=== PATIENT | male | born 1980 | race Caucasian/White ===

== ENCOUNTER 2017-08-07 16:57 | Inpatient (IN) ==
[2017-08-07 17:45] LABS: Bilirubin,Urine Small (Negative); Blood,Urine Negative (Negative); Clarity,Urine Clear (Clear); Glucose,Urine (UA) Normal (Normal); Ketones,Urine Trace mg/dL (Negative); Leukocyte Esterase,Urine Negative (Negative); Nitrite,Urine Negative (Negative); Protein,Urine 30 mg/dL (Neg-Trace); Specific Gravity,Urine >= 1.030 (1.010-1.025); Urobilinogen,Urine Normal (Normal)
[2017-08-07 17:50] LABS: Color,Urine Dark Yellow (Yellow)
[2017-08-07 17:55] LABS: Basophils # 0.1 K/mcL (0.0-0.2); Basophils % 0.4 %; Eosinophils # 0.1 K/mcL (0.0-0.6); Eosinophils % 0.6 %; Hematocrit 47.9 % (37.5-50.1); Hemoglobin 16.8 g/dL (12.9-16.9); Immature Granulocytes % 0.4 % (0-4); Lymphocytes # 1.6 K/mcL (0.6-4.6); Lymphocytes % 11.3 %; Mean Corpuscular HGB Conc 35.1 g/dL (31.6-35.5); Mean Corpuscular Hemoglobin 29.3 pg (28.0-33.3); Mean Corpuscular Volume 83.6 fL (83.0-100.0); Mean Platelet Volume 9.5 fL (9.4-12.4); Monocytes # 0.9 K/mcL (0.0-1.3); Monocytes % 6.2 %; Neutrophils # 11.4 K/mcL (1.6-8.9); Platelet Count 272 K/mcL (140-400); Red Blood Count 5.73 M/mcL (4.19-5.50); Red Cell Distribution Width 12.9 % (11.5-14.5); Segmented Neutrophils % 81.1 %
[2017-08-07 18:00] LABS: Mucus,Urine Few (Few)
[2017-08-07 18:01] LABS: Squamous Epithelial Cell,Urine Many per lpf (None-Few)
[2017-08-07 18:03] LABS: Bacteria,Urine None Seen per hpf (None-Few); RBC,Urine 0-3 per hpf (0-3); WBC,Urine 0-3 per hpf (0-3)
[2017-08-07] MEDS ORDERED: 0.9 % Sodium Chloride 1,000 ML IVC ONE (18:13)
[2017-08-07] MEDS ORDERED: Hyoscyamine 0.5 MG/ML MLS IVP ONE (18:14)
[2017-08-07] MEDS ORDERED: *HR* HYDROmorphone (PF) 1 MG/ML SYRINGE IVP ONE (18:14)
[2017-08-07 18:16] LABS: Alanine Aminotransferase 70 Units/L (7-52); Albumin/Globulin Ratio 2.1 (1.1-2.2); Alkaline Phosphatase 99 Units/L (34-104); Aspartate Amino Transferase 60 Units/L (13-39); BUN/Creatinine Ratio 12 (6-26); Bilirubin,Direct 0.7 mg/dL (0.0-0.2); Bilirubin,Indirect 2.5 mg/dL (0.0-1.2); Bilirubin,Total 3.2 mg/dL (0.3-1.0); Blood Urea Nitrogen 11 mg/dL (6-20); Calcium 9.7 mg/dL (8.6-10.3); Carbon Dioxide 26 mEq/L (23-29); Chloride 101 mEq/L (98-107); Globulin 2.4 g/dL (2.4-3.5); Glucose 119 mg/dL (70-105); Osmolality,Calculated 279 (280-300); Potassium 3.9 mEq/L (3.5-5.1); Sodium 134 mEq/L (136-145); Total Protein 7.4 g/dL (6.4-8.9); eGFR For African Americans > 60 (> 60); eGFR For Non-African Americans > 60 (> 60)
--- NOTE | 2017-08-07 18:19 | Emergency Department Note ---
Disposition Clinical Impression: Abdominal pain Qualifiers: Abdominal location: right upper quadrant Qualified Code(s): R10.11 - Right upper quadrant pain Disposition: Still a Patient Condition: Fair Forms: ED Satisfaction Letter, Work/School Release Abdominal Pain HPI - General Chief Complaint: ED Abdominal Pain Stated Complaint: Gall Stone issues Time Seen by Provider: 08/07/17 17:38 Source: patient Mode of arrival: ambulatory Limitations: no limitations Nursing Notes Reviewed: Yes Vital Signs Reviewed: Yes - History of Present Illness HPI Narrative: 37-year-old male with a history of gallstones in the past visits for evaluation of epigastric pain. He should not states onset of pain was earlier today. States he has had known gallstones several years ago. Patient has not had any interventions done. 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 Patient reports some nausea but no symptoms of emesis. No fevers. Patient notes that the pain is worse in the epigastrium. Patient denies any history of cardiac disease. Patient denies any change in bowels. Patient reports that he has not eaten today since 11:30 Pain Scale: 8 - Related Data Allergies Allergy/AdvReac Type Severity Reaction Status Date / Time No Known Allergies Allergy Verified 08/07/17 17:21 All systems ED: reviewed and negative except as stated. Constitutional: Reports: as per HPI. Denies: fever Eyes: Reports: as per HPI ENT ED: Reports: as per HPI Cardiovascular: Reports: as per HPI. Denies: chest pain Respiratory: Reports: as per HPI. Denies: dyspnea Gastrointestinal: Reports: as per HPI, abdominal pain, nausea. Denies: vomiting , diarrhea, constipation Genitourinary: Reports: as per HPI Musculoskeletal: Reports: as per HPI Integumentary: Reports: as per HPI Neurological: Reports: as per HPI Psychiatric: Reports: as per HPI Endocrine: Reports: as per HPI Abdominal Pain PMH - Past Medical History Medical history: Reports: other Male Surgical History: Reports: no surgical history Psychiatric history: Reports: no psych history - Social History Smoking status: Never smoker Alcohol use: Reports: none Drug use: Reports: none Physical Exam - General Limitations: no limitations General appearance: alert, in no apparent distress - Head Head exam: atraumatic, normocephalic, normal inspection - Eye Eye exam: Present: normal appearance, PERRL, EOMI - ENT ENT exam: normal exam, mucous membranes moist - Neck Neck exam: Present: normal inspection, trachea midline - Chest Chest inspection: Present: normal inspection, symmetric chest wall rise - Respiratory Respiratory exam: Present: normal lung sounds bilaterally. Absent: respiratory distress - Cardiovascular Cardiovascular exam: Present: regular rate, normal rhythm - Abdominal Exam Abdominal exam: Present: soft, tenderness (Mild to moderate tenderness right upper quadrant tenderness.). Absent: guarding, rebound - Extremities Exam Extremities exam: Present: normal inspection. Absent: pedal edema - Back Exam Back exam: Present: normal inspection - Neurological Exam Neurological exam: Present: alert, oriented X3 - Skin Skin exam: Present: warm, dry, intact, normal color Course Course Narrative: Patient seen and examined. Patient had a bedside ultrasound showed multiple gallstones with a distended gallbladder. There is no notable pericholecystic fluid. Patient will need a formal ultrasound to confirm. Vital Signs Temperature 97.5 F L 08/07/17 17:01 Pulse Rate 83 08/07/17 17:01 Respiratory Rate 16 08/07/17 17:01 Blood Pressure 148/93 08/07/17 17:01 O2 Sat by Pulse Oximetry 97 08/07/17 17:01 Temperature 97.5 F L 08/07/17 17:01 Pulse Rate 83 08/07/17 17:01 Respiratory Rate 16 08/07/17 17:01 Blood Pressure 148/93 08/07/17 17:01 O2 Sat by Pulse Oximetry 97 08/07/17 17:01 Oxygen Delivery Oxygen Delivery Room Air Abdominal Pain - [facility] Narrative Medical decision making narrative: 37-year-old male patient for evaluation of abdominal pain. Patient has known gallstones. Patient has right upper quadrant pain. Patient had a bedside ultrasound performed by me which showed gallstones with a distended gallbladder. Patient would likely need a formal ultrasound to rule out cholecystitis. Patient does have an elevated white count and elevated bilirubin and elevated liver function. Patient will be treated symptomatically with IV fluids, antiemetics and pain control. Patient will be sent up by the oncoming provider for anticipated disposition. Patient has been nothing by mouth since approximately 11:30 today. - Lab Data Lab results reviewed: Yes I reviewed the patient's lab results. Result diagrams: 08/07/17 17:45 08/07/17 17:45 Lab Results 12/08/07/17 08/07/17 Range/Units 17:11 17:45 17:45 WBC 14.1 H (4.3-11.1) K/mcL RBC 5.73 H (4.19-5.50) M/mcL Hgb 16.8 (12.9-16.9) g/dL Hct 47.9 (37.5-50.1) % MCV 83.6 (83.0-100.0) fL MCH 29.3 (28.0-33.3) pg MCHC 35.1 (31.6-35.5) g/dL RDW 12.9 (11.5-14.5) % Plt Count 272 (140-400) K/mcL MPV 9.5 (9.4-12.4) fL Immature Gran % 0.4 (0-4) % Seg Neutrophils % 81.1 % Lymphocytes % 11.3 % Monocytes % 6.2 % Eosinophils % 0.6 % Basophils % 0.4 % Neutrophils # 11.4 H (1.6-8.9) K/mcL Lymphocytes # 1.6 (0.6-4.6) K/mcL Monocytes # 0.9 (0.0-1.3) K/mcL Eosinophils # 0.1 (0.0-0.6) K/mcL Basophils # 0.1 (0.0-0.2) K/mcL Sodium 134 L (136-145) mEq/L Potassium 3.9 (3.5-5.1) mEq/L Chloride 101 (98-107) mEq/L Carbon Dioxide 26 (23-29) mEq/L BUN 11 (6-20) mg/dL Creatinine 0.92 (0.70-1.30) mg/dL Est GFR ( Amer) > 60 (> 60) Est GFR (Non-Af Amer) > 60 (> 60) BUN/Creatinine Ratio 12 (6-26) Glucose 119 H (70-105) mg/dL Calculated Osmolality 279 L (280-300) Calcium 9.7 (8.6-10.3) mg/dL Total Bilirubin 3.2 H (0.3-1.0) mg/dL Direct Bilirubin 0.7 H (0.0-0.2) mg/dL Indirect Bilirubin 2.5 H (0.0-1.2) mg/dL AST 60 H (13-39) Units/L ALT 70 H (7-52) Units/L Alkaline Phosphatase 99 (34-104) Units/L Serum Total Protein 7.4 (6.4-8.9) g/dL Albumin 5.0 (3.5-5.7) g/dL Globulin 2.4 (2.4-3.5) g/dL Albumin/Globulin Ratio 2.1 (1.1-2.2) Urine Color Dark Yellow (Yellow) Urine Clarity Clear (Clear) Urine pH 5.0 (5.0-8.0) pH Units Ur Specific [place] >= 1.030 H (1.010-1.025) Urine Protein 30 H (Neg-Trace) mg/dL Urine Glucose (UA) Normal (Normal) mg/dL Urine Ketones Trace H (Negative) mg/dL Urine Blood Negative (Negative) Urine Nitrite Negative (Negative) Urine Bilirubin Small H (Negative) Urine Urobilinogen Normal (Normal) mg/dL Ur Leukocyte Esterase Negative (Negative) Urine Microscopic RBC 0-3 (0-3) per hpf Urine Microscopic WBC 0-3 (0-3) per hpf Ur Squamous Epith Cells Many H (None-Few) per lpf Urine Bacteria None Seen (None-Few) per hpf Urine Mucus Few (Few) Ur Culture Indicated? NO (NO) Attestation Statement - Attestation Attestation: I examined this patient and my medical decision-making was reviewed with the Resident Physician. I agree with the documented findings, disposition and treatment plan as described except to the extent set forth below. Patient presents to the emergency department right upper quadrant abdominal pain. There upon awakening this morning. No vomiting. Patient states he was told 5 years ago that he had gallstones. On examination he has right upper quadrant tenderness. Plan. Labs showed elevated LFTs and bilirubin. White blood cell count. Bedside ultrasound shows a dilated gallbladder with stones. Formal ultrasound pending. Will be signed out to overnight associate.
[2017-08-07] MEDS ORDERED: Ondansetron 4 MG/2 ML VIAL IVP ONE (18:50)
[2017-08-07 19:25] LABS: Lipase > 1800 Units/L (11-82)
[2017-08-07] MEDS ORDERED: Piperacillin/Tazobactam 3.375 GM in Water for inj. (sterile) 20 ML 20 ML IVP STA (20:36)
--- NOTE | 2017-08-07 20:37 | Emergency Department Note ---
Disposition Clinical Impression: Choledocholithiasis, Elevated bilirubin Abdominal pain Qualifiers: Abdominal location: right upper quadrant Qualified Code(s): R10.11 - Right upper quadrant pain Disposition: Admitted As Inpatient Condition: Good Referrals: NONE,PCP [Primary Care Provider] - Forms: ED Satisfaction Letter, Work/School Release Time of Disposition: 20:38 General Adult HPI - General Chief complaint: ED Abdominal Pain Stated complaint: Gall Stone issues Time Seen by Provider: 08/07/17 17:38 Source: patient Mode of arrival: ambulatory Limitations: no limitations - History of Present Illness Pain Scale: 8 - Related Data Home Medications Medication Instructions Recorded Confirmed No Known Home Drugs 08/07/17 08/07/17 Allergies Allergy/AdvReac Type Severity Reaction Status Date / Time No Known Allergies Allergy Verified 08/07/17 17:21 Constitutional: Reports: as per HPI. Denies: fever Eyes: Reports: as per HPI ENT ED: Reports: as per HPI Cardiovascular: Reports: as per HPI. Denies: chest pain Respiratory: Reports: as per HPI. Denies: dyspnea Gastrointestinal: Reports: as per HPI, abdominal pain, nausea. Denies: vomiting , diarrhea, constipation Genitourinary: Reports: as per HPI Musculoskeletal: Reports: as per HPI Integumentary: Reports: as per HPI Neurological: Reports: as per HPI Psychiatric: Reports: as per HPI Endocrine: Reports: as per HPI Past Medical History - Past Medical History Medical history: Reports: other Psychiatric history: Reports: no psych history - Social History Smoking Status: Never smoker Alcohol use: Reports: none Drug use: Reports: none Physical Exam - General Limitations: no limitations General appearance: alert, in no apparent distress Course Course Narrative: Patient taken over at the beginning of my shift from Dr. Pino. Detailed review the presentation symptoms medical history as well as a medical evaluation and workup were discussed. Patient I discussed and reviewed the presentation repeat physical exam is consistent right upper quadrant discomfort. Labs do show what appears to be an obstructive pathology. Patient does have a history of gallbladder stones. Ultrasound of the right upper quadrant does show what appears to be dilation of the common bile duct consistent with choledocholithiasis. Patient discussed with the hospitalist Dr. Aguilar. Happy to accept the patient to the hospital this time for possible medical intervention with gastroenterology. Patient denies any need for pain medication this point. No antibiotics required at this time. Patient does not focally of any intra-abdominal pathology except for obstructed gallbladder this time. Patient family informed to come to this plan. Admission process to be completed this time. - Reevaluation(s) Reevaluation #1: After I reviewed the patient's laboratory work repeated in a slightly elevated white count. With neutrophilia. Patient could have presentation of early inflammatory or infectious etiology. Single dose of Zosyn started this time. No other acute concerning findings on exam at this point. Symptoms are most likely consistent and secondary to inflammation and irritation will continue monitoring the inpatient setting Time: 20:37 Vital Signs Temperature 97.5 F L 08/07/17 17:01 Pulse Rate 83 08/07/17 17:01 Respiratory Rate 16 08/07/17 17:01 Blood Pressure 148/93 08/07/17 17:01 O2 Sat by Pulse Oximetry 97 08/07/17 17:01 Temperature 97.5 F L 08/07/17 17:01 Pulse Rate 72 08/07/17 20:20 Respiratory Rate 18 08/07/17 20:20 Blood Pressure 137/91 08/07/17 20:20 O2 Sat by Pulse Oximetry 92 08/07/17 20:20 Oxygen Delivery Oxygen Delivery Room Air Medical Decision Making - MDM Narrative Medical decision making narrative: Choledocholithiasis, obstructive gallbladder - Medical Records Medical records reviewed: Yes I reviewed the patient's medical records. - Lab Data Lab results reviewed: Yes I reviewed the patient's lab results. Result diagrams: 08/07/17 17:45 08/07/17 17:45 Lab Results 08/07/17 08/07/17 08/07/17 Range/Units 17:11 17:45 17:45 WBC 14.1 H (4.3-11.1) K/mcL RBC 5.73 H (4.19-5.50) M/mcL Hgb 16.8 (12.9-16.9) g/dL Hct 47.9 (37.5-50.1) % MCV 83.6 (83.0-100.0) fL MCH 29.3 (28.0-33.3) pg MCHC 35.1 (31.6-35.5) g/dL RDW 12.9 (11.5-14.5) % Plt Count 272 (140-400) K/mcL MPV 9.5 (9.4-12.4) fL Immature Gran % 0.4 (0-4) % Seg Neutrophils % 81.1 % Lymphocytes % 11.3 % Monocytes % 6.2 % Eosinophils % 0.6 % Basophils % 0.4 % Neutrophils # 11.4 H (1.6-8.9) K/mcL Lymphocytes # 1.6 (0.6-4.6) K/mcL Monocytes # 0.9 (0.0-1.3) K/mcL Eosinophils # 0.1 (0.0-0.6) K/mcL Basophils # 0.1 (0.0-0.2) K/mcL Sodium 134 L (136-145) mEq/L Potassium 3.9 (3.5-5.1) mEq/L Chloride 101 (98-107) mEq/L Carbon Dioxide 26 (23-29) mEq/L BUN 11 (6-20) mg/dL Creatinine 0.92 (0.70-1.30) mg/dL Est GFR ( Amer) > 60 (> 60) Est GFR (Non-Af Amer) > 60 (> 60) BUN/Creatinine Ratio 12 (6-26) Glucose 119 H (70-105) mg/dL Calculated Osmolality 279 L (280-300) Calcium 9.7 (8.6-10.3) mg/dL Total Bilirubin 3.2 H (0.3-1.0) mg/dL Direct Bilirubin 0.7 H (0.0-0.2) mg/dL Indirect Bilirubin 2.5 H (0.0-1.2) mg/dL AST 60 H (13-39) Units/L ALT 70 H (7-52) Units/L Alkaline Phosphatase 99 (34-104) Units/L Serum Total Protein 7.4 (6.4-8.9) g/dL Albumin 5.0 (3.5-5.7) g/dL Globulin 2.4 (2.4-3.5) g/dL Albumin/Globulin Ratio 2.1 (1.1-2.2) Lipase > 1800 H (11-82) Units/L Urine Color Dark Yellow (Yellow) Urine Clarity Clear (Clear) Urine pH 5.0 (5.0-8.0) pH Units Ur Specific [place] >= 1.030 H (1.010-1.025) Urine Protein 30 H (Neg-Trace) mg/dL Urine Glucose (UA) Normal (Normal) mg/dL Urine Ketones Trace H (Negative) mg/dL Urine Blood Negative (Negative) Urine Nitrite Negative (Negative) Urine Bilirubin Small H (Negative) Urine Urobilinogen Normal (Normal) mg/dL Ur Leukocyte Esterase Negative (Negative) Urine Microscopic RBC 0-3 (0-3) per hpf Urine Microscopic WBC 0-3 (0-3) per hpf Ur Squamous Epith Cells Many H (None-Few) per lpf Urine Bacteria None Seen (None-Few) per hpf Urine Mucus Few (Few) Ur Culture Indicated? NO (NO) - Radiology Data Radiology results reviewed: Yes I reviewed the patient's radiology results. Ultrasound confirms obstructive choledocholithiasis.
[2017-08-07] MEDS ORDERED: Naloxone 0.4 MG/ML INJ IVP PRN (21:00)
[2017-08-07] MEDS ORDERED: Ondansetron 4 MG/2 ML VIAL IVP PRN (21:00)
[2017-08-07] MEDS ORDERED: 0.9 % Sodium Chloride 1,000 ML IVC SCH (21:00)
[2017-08-07] MEDS ORDERED: Acetaminophen 325 MG TABLET PO PRN (21:00)
--- NOTE | 2017-08-07 21:29 | Internal Med History&Physical ---
<Subhash Gilbert - Last Filed: 08/07/17 21:33> Date of Encounter: 08/07/17 Time of Encounter: 21:26 Assessment and Plan (1) Choledocholithiasis Current visit: Yes Status: Acute Patient is comfortable and in no acute distress. Patient is afebrile. Gallbladder US showed cholelithiasis and gallbladder sludge. No evidence of acute cholecystitis. Common bile duct is dilated proximally measuring up to 1.3 cm. No intrahepatic biliary dilatation. Elevated WBCs at 14.1. Elevated LFTs with AST 60 and ALT 70. Elevated bilirubin. Elevated lipase >1800. 1. Make patient NPO. 2. Give fluids. 3. Zofran for nausea. 4. Pain control. 5. Consult GI for possible ERCP. (2) Acute pancreatitis Current visit: Yes Status: Acute Acute pancreatitis most likely secondary to cholodocholithiasis. Gallbladder US showed no evidence of acute cholecystitis.Common bile duct is dilated proximally measuring up to 1.3 cm. No intrahepatic biliary dilatation. Elevated LFTs, bilirubin and lipase >1800. Elevated WBCs at 14.1 1. NPO diet now 2. Give fluids 3. Pain control 4. Consult GI in the morning. 5. Trend lipase Qualifiers: Pancreatitis type: unspecified pancreatitis type Acute pancreatitis complication: unspecified Qualified Code(s): K85.90 - Acute pancreatitis without necrosis or infection, unspecified (3) Cholelithiases Current visit: Yes Status: Acute History of cholelithiases. Qualifiers: Cholelithiasis location: gallbladder Qualified Code(s): K80.20 - Calculus of gallbladder without cholecystitis without obstruction Internal Medicine - H&P: HPI Chief complaint: RUQ abdominal pain Admitted From: Emergency Dept History of present illness: Mr. Ennis is a 37 year old male with a PMHx of gallstones presents to the ED today complaining of RUQ pain that started this morning at 7am. The patient states that the pain feels like his previous gallstones in the past. The last time he has had this pain was a few years. The patient describes the RUQ pain as sharp, constant with no radiation. 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 He rates the pain as a 5/10. The patient admits associated nausea but denies any fevers, chills, vomiting, yellowing of the skin, headaches, vision changes, chest pain, shortness of breath, changes in bowel movements, changes in urination, numbness and tingling , and any weaknesses. Past Med Surg Social Fam HX - Past Medical History Medical history: other Psychiatric history: no psych history - Social History Smoking Status: Never smoker Alcohol use: none Drug use: none Internal Medicine - H&P: Meds No Known Home Drugs 08/07/17 [History] 3 Allergy/AdvReac Type Severity Reaction Status Date / Time No Known Allergies Allergy Verified 08/07/17 17:21 All Systems PM: A 10-system review of systems was performed and is negative for pertinent findings except as documented above in the HPI. - Constitutional Vitals: Temp Pulse Resp BP Pulse Ox 97.5 F L 83 18 137/93 92 08/07/17 17:01 08/07/17 21:15 08/07/17 20:20 08/07/17 21:15 08/07/17 21:15 General appearance: Present: A&O X 3, pleasant. Absent: no acute distress - Head Head exam: Present: atraumatic, normocephalic - Eye Eye exam: Present: PERRL, conjuntiva pink, sclera anicteric Pupils: Present: PERRL - Neck Neck exam general surgery: Present: supple, trachea midline. Absent: lymphadenopathy - Respiratory Respiratory exam: Present: CTAB. Absent: accessory muscle use, rales, rhonchi, wheezes - Cardiovascular Cardiovascular exam: Present: RRR, +S1, +S2. Absent: diastolic murmur, gallop, rubs, systolic murmur - GI/Abdominal GI/Abdominal exam: Present: normal bowel sounds, soft, tenderness (tenderness to palpation in the RUQ and epigastric. ), no peritoneal signs. Absent: distended - Expanded GI/Abdominal Exam GI/Abdominal exam expanded: Absent: Noel's sign, tenderness at McBurney's Point - Extremities Exam Extremities exam: Present: warm, radial pulses palpable and symmetrical. Absent : calf tenderness, cyanotic, pedal edema - Neurological Exam Neurological exam: Present: CN II-XII intact, oriented X3, no focal deficits. Absent: pronater drift, facial droop, speech deficit - Skin Skin exam: Present: dry, intact Internal Med - H&P Results - Labs CBC & Chem 7: 08/07/17 17:45 08/07/17 17:45 <Inna Aguilar - Last Filed: 08/07/17 23:11> Date of Encounter: 08/07/17 Internal Medicine - H&P: HPI History of present illness: Mr. Ennis is a 37 year old male All Systems PM: A 10-system review of systems was performed and is negative for pertinent findings except as documented above in the HPI. - Constitutional Vitals: Temp Pulse Resp BP Pulse Ox 97.9 F 72 14 141/87 97 08/07/17 21:53 08/07/17 21:53 08/07/17 21:53 08/07/17 21:53 08/07/17 21:53 Internal Med - H&P Results - Labs CBC & Chem 7: 08/07/17 17:45 08/07/17 17:45 - Attending Attestation I examined this patient and my medical decision-making was reviewed with the Resident Physician. I agree with the documented findings, disposition and treatment plan as described except to the extent set forth below. 37 yo male who present 1 day hx of RUQ pain associated with nausea. Hx positive for GB issues 5 years ago, but improved by itself and was loss to follow up ROS 14 point review of systems reviewed as best as possible given presentation. Pertinent positive or negative as per HPI or otherwise reviewed as negative General - AAO x 3 Psych - Appropriate affect/speech. No agitation Eyes - EFRAÍN. Eye lids intact. No scleral icterus Heart - Sinus. RRR. S1 and S2 present. No added HS/murmurs appreciated. No elevated JVD appreciated. Lung - Adequate air entry b/l, No crackles/wheezes appreciated GI - RUQ pain. No hepatosplenomegaly/ascites. BS+ - No CVA/suprapubic tenderness or palpable bladder distension Skin - Intact. No rash/petechiae/ecchymosis. Warm extremities MSK - Joints with normal ROM. No joint swellings US/US gall bladder IMPRESSION: Cholelithiasis and gallbladder sludge. No evidence of acute cholecystitis. Common bile duct is dilated proximally measuring up to 1.3 cm. No intrahepatic biliary dilatation. If there are signs concerning for biliary obstruction consider further evaluation with MRCP. A/P Choledocholiathiasis Choleliathiasis Acute pancreatitis - NPO, IVF, IV morphine - consult GI for eval - possible need for ERCP +/- MRCP . Further management pending GI rec - will need interval cholecystectomy
[2017-08-07] MEDS: *HR* Morphine 2 MG/ML SYRINGE IVP PRN (23:16)
[2017-08-07] MEDS: 0.9 % Sodium Chloride 1,000 ML IVC SCH (23:17)
[2017-08-08 04:23] LABS: Basophils % 0.4 %; Eosinophils # 0.1 K/mcL (0.0-0.6); Eosinophils % 0.8 %; Hematocrit 46.9 % (37.5-50.1); Hemoglobin 16.2 g/dL (12.9-16.9); Immature Granulocytes % 0.4 % (0-4); Lymphocytes # 1.8 K/mcL (0.6-4.6); Lymphocytes % 18.1 %; Mean Corpuscular HGB Conc 34.5 g/dL (31.6-35.5); Mean Corpuscular Hemoglobin 29.2 pg (28.0-33.3); Mean Corpuscular Volume 84.7 fL (83.0-100.0); Mean Platelet Volume 9.5 fL (9.4-12.4); Monocytes # 0.8 K/mcL (0.0-1.3); Monocytes % 7.7 %; Neutrophils # 7.2 K/mcL (1.6-8.9); Nucleated Red Blood Cells 0.2 /100 WBC (0); Platelet Count 222 K/mcL (140-400); Red Blood Count 5.54 M/mcL (4.19-5.50); Red Cell Distribution Width 12.7 % (11.5-14.5); Segmented Neutrophils % 72.6 %
[2017-08-08 04:26] LABS: INR 1.1; Prothrombin Time 12.3 Seconds (9.4-12.1)
[2017-08-08 04:29] LABS: Activated Partial Thrombo Time 26.1 Seconds (26.0-36.0)
[2017-08-08 04:47] LABS: Alanine Aminotransferase 57 Units/L (7-52); Albumin 4.2 g/dL (3.5-5.7); Albumin/Globulin Ratio 1.8 (1.1-2.2); Alkaline Phosphatase 84 Units/L (34-104); Aspartate Amino Transferase 41 Units/L (13-39); BUN/Creatinine Ratio 12 (6-26); Bilirubin,Total 3.6 mg/dL (0.3-1.0); Blood Urea Nitrogen 10 mg/dL (6-20); Calcium 8.8 mg/dL (8.6-10.3); Carbon Dioxide 26 mEq/L (23-29); Chloride 105 mEq/L (98-107); Globulin 2.4 g/dL (2.4-3.5); Glucose 116 mg/dL (70-105); Osmolality,Calculated 284 (280-300); Phosphorous 3.4 mg/dL (2.7-4.5); Sodium 137 mEq/L (136-145); Total Protein 6.6 g/dL (6.4-8.9); eGFR For African Americans > 60 (> 60); eGFR For Non-African Americans > 60 (> 60)
[2017-08-08] MEDS: 0.9 % Sodium Chloride 1,000 ML IVC SCH ×2 (06:17→20:09)
[2017-08-08] MEDS: *HR* Morphine 2 MG/ML SYRINGE IVP PRN (06:18)
--- NOTE | 2017-08-08 11:03 | Gastroenterology Consult Note ---
<Bi Wood - Last Filed: 08/08/17 11:00> Date of Encounter: 08/08/17 Time of Encounter: 09:55 - Assessment and plan (1) Abdominal pain Current Visit: Yes Status: Acute Assessment and plan: RUQ US cholelithiasis and gallbladder sludge. CBD dilated to 1.3cm, no intrahepatic biliary dilation. On admission patient had elevated WBC at 14.1, TB 3.2, AST 60, ALT 70, and lipase >1800. This AM TB 3.6, AST 41, ALT 57 and Lipase 1680. Continue IV fluids at 150 ml/hr, pain control, and antiemetics. Complete MRCP. Consider ERCP pending MRCP results. Keep patient NPO for now. Qualifiers: Abdominal location: right upper quadrant Qualified Code(s): R10.11 - Right upper quadrant pain (2) Choledocholithiasis Current Visit: Yes Status: Acute Assessment and plan: Completely MRCP and consider ERCP. (3) Acute pancreatitis Current Visit: Yes Status: Acute Assessment and plan: Likely secondary to gallstone. Continue IV fluids, antiemetics, and pain control. Keep patient NPO. Qualifiers: Pancreatitis type: unspecified pancreatitis type Acute pancreatitis complication: unspecified Qualified Code(s): K85.90 - Acute pancreatitis without necrosis or infection, unspecified (4) Elevated bilirubin Current Visit: Yes Status: Acute Assessment and plan: Secondary to choledocholithiasis. Continue to monitor LFTs daily. - Time Spent With Patient Total time spent is greater than 50% in coordination of care (as documented) at patient's floor/unit and/or counseling patient: GI History of Present Illness - Data of Consult Patient: new to practice Consult date: 08/08/17 Requesting Physician: Zoe Alvares - Consult Narrative Reason for consult: ERCP, stone History of present illness: Mr. Ennis is a 37 year old male with PMHx of gallstones presented to the ED with c/o RUQ pain that started the day of admission and is similar to pain he felt with gallstones in the past. The pain is worsend with movement and improves with lying still. He complains of nausea but denies fever, chills, chest pain, shortness of breath, vomiting, or change in bowel habits. On admission patient had elevated WBC at 14.1, TB 3.2, AST 60, ALT 70, and lipase > 1800. RUQ US cholelithiasis and gallbladder sludge. CBD dilated to 1.3cm, no intrahepatic biliary dilation. He was started on pain medication, antiemetics, and IV fluids at 150 ml/hr. Procedures: None NSAIDs: None Anticoagulation: None Past Med Surg Social Fam HX - Past Medical History Medical history: other Psychiatric history: no psych history - Social History Smoking Status: Never smoker Smokeless Tobacco Status: No Alcohol use: none Drug use: none - Family History Mother Living Status: Age at : 56 Cause of : CHF Hx Family Cardiac Disorders: Yes Hx Family Respiratory Disorders: Yes (COPD) Hx Family Endocrine Disorder: Yes Father Living Status: Age at : 56 Cause of : cancer - Gastrointestinal Gastrointestinal: Present: as per HPI - Constitutional Constitutional: as per HPI - EENT Eyes: as per HPI Ears: Present: as per HPI Nose, mouth and throat: Present: as per HPI - Cardiovascular Cardiovascular ROS: Present: as per HPI - Respiratory Respiratory IM: Present: as per HPI - Genitourinary Genitourinary: Absent: change in color, Urinary frequency - Neurological ROS Neurological GI: Present: as per HPI - Hematologic/Lymphatic Hematologic/Lymphatic pediatric: Present: as per HPI - Musculoskeletal Musculoskeletal ROS GI: Present: as per HPI - Integumentary Integumentary GI: Present: as per HPI - Psychiatric ROS Psychiatric GI: Present: as per HPI - Endocrine Endocrine IM: Present: as per HPI - Constitutional Vitals: Temp Pulse Resp BP Pulse Ox 98.4 F 84 15 110/73 94 08/08/17 07:39 08/08/17 07:39 08/08/17 07:39 08/08/17 07:39 08/08/17 07:39 General appearance: Present: cooperative, A&O X 3, no acute distress, answers questions appropriately - Head Head exam: Present: atraumatic, normocephalic - Eye Eye exam: Present: normal appearance, sclera anicteric - ENT ENT exam: Present: mucous membranes dry - Neck Neck exam general surgery: Present: normal inspection, trachea midline - Respiratory Respiratory exam: Present: CTAB. Absent: rales, rhonchi - Cardiovascular Cardiovascular exam: Present: RRR, +S1, +S2 - GI/Abdominal GI/Abdominal exam: Present: soft, tenderness (RUQ, epigastric), no peritoneal signs. Absent: distended, firm, guarding - Rectal Rectal exam: Present: deferred - Extremities Exam Extremities exam: Present: warm - Neurological Exam Neurological exam: Present: no focal deficits - Psychiatric Psychiatric exam: Present: normal affect, normal mood - Skin Skin exam: Present: dry, intact, normal color, warm Results - Labs CBC & Chem 7: 08/08/17 04:12 08/08/17 04:12 Labs: Last Result Calcium 8.8 mg/dL (8.6-10.3) 08/08/17 04:12 Entire Visit Hgb 16.2 g/dL (12.9-16.9) 08/08/17 04:12 Hct 46.9 % (37.5-50.1) 08/08/17 04:12 PT 12.3 Seconds (9.4-12.1) H 08/08/17 04:12 Total Bilirubin 3.6 mg/dL (0.3-1.0) H 08/08/17 04:12 AST 41 Units/L (13-39) H 08/08/17 04:12 ALT 57 Units/L (7-52) H 08/08/17 04:12 Lipase 1680 Units/L (11-82) H 08/08/17 04:12 - ABG ABG results: PT/INR, D-dimer PT 12.3 Seconds (9.4-12.1) H 08/08/17 04:12 - Impressions Impressions Abdomen MRI 08/08/17 08:08 IMPRESSION: 1. Acute pancreatitis. 2. Common bile duct dilatation secondary to 2 distal gallstones measuring 2-3 mm. 3. Cholelithiasis without evidence of acute cholecystitis. D/ / Teresa Ambrocio MD / Teresa Ambrocio MD Interpreting Provider: Teresa Ambrocio MD Consult Discharge Plan - Plan Referrals: NONE,PCP [Primary Care Provider] - <Uri Reese - Last Filed: 08/08/17 12:47> Date of Encounter: 08/08/17 Time of Encounter: 11:20 - Time Spent With Patient Total time spent is greater than 50% in coordination of care (as documented) at patient's floor/unit and/or counseling patient: GI History of Present Illness - Data of Consult Requesting Physician: Zoe Alvares - Consult Narrative History of present illness: Mr. Ennis is a 37 year old male - Constitutional Vitals: Temp Pulse Resp BP Pulse Ox 99.4 F 74 16 132/83 94 08/08/17 12:44 08/08/17 12:44 08/08/17 12:44 08/08/17 12:39 08/08/17 12:44 Results - Labs CBC & Chem 7: 08/08/17 04:12 08/08/17 04:12 Labs: Last Result Calcium 8.8 mg/dL (8.6-10.3) 08/08/17 04:12 Entire Visit Hgb 16.2 g/dL (12.9-16.9) 08/08/17 04:12 Hct 46.9 % (37.5-50.1) 08/08/17 04:12 PT 12.3 Seconds (9.4-12.1) H 08/08/17 04:12 Total Bilirubin 3.6 mg/dL (0.3-1.0) H 08/08/17 04:12 AST 41 Units/L (13-39) H 08/08/17 04:12 ALT 57 Units/L (7-52) H 08/08/17 04:12 Lipase 1680 Units/L (11-82) H 08/08/17 04:12 - ABG ABG results: PT/INR, D-dimer PT 12.3 Seconds (9.4-12.1) H 08/08/17 04:12 - Impressions Impressions Abdomen MRI 08/08/17 08:08 IMPRESSION: 1. Acute pancreatitis. 2. Common bile duct dilatation secondary to 2 distal gallstones measuring 2-3 mm. 3. Cholelithiasis without evidence of acute cholecystitis. D/ / Teresa Ambrocio MD / Teresa Ambrocio MD Interpreting Provider: Teresa Ambrocio MD Cath/Invasive Procedure 08/08/17 12:12 IMPRESSION: ERCP images demonstrating balloon sweeping of the common bile duct. D/ / Doc Velásquez MD / Doc Velásquez MD Interpreting Provider: Doc Velásquez MD - Attending Attestation I examined this patient and my medical decision-making was reviewed with the Resident Physician. I agree with the documented findings, disposition and treatment plan as described except to the extent set forth below. Patient with gallstone now admitted with abdominal pain with abnormal LFTs and CBD dilation suspicious for CBD stone. MRCP does shows 2 small 2-3 mm stone in the distal CBD. Recommendation: ERCP today procedure including risks were discussed with the patient patient Marian need gallbladder removal after his ERCP
--- NOTE | 2017-08-08 11:03 | Anesthesia Evaluation PreOp ---
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: Denies Any Significant HX Other Medical History: Other (acute pancreatitis due to gall stones) Anesthesia History: No Prior Anesthetic Complications Alcohol Use: none Drug use: none Medications and Allergies No Known Home Drugs 08/07/17 [History] 3 Allergy/AdvReac Type Severity Reaction Status Date / Time No Known Allergies Allergy Verified 08/07/17 17:21 - Meds/Allergy Pre-op Review Medications Reviewed: Yes Allergies Reviewed: Yes Beta Blockers on Current Med List: No Anesthesia Results - Labs 08/08/17 04:12 08/08/17 04:12 Anesthesia Exam Selected Entries 08/08/17 07:39 Temperature 98.4 F Pulse Rate 84 Respiratory Rate 15 Blood Pressure 110/73 O2 Sat by Pulse Oximetry 94 Weight: 97kg NPO (# of Hours): 8 - HEENT Pupil (Motor): EOMI Mallampati: II Teeth: Normal Oral Opening: Greater than 3 - TEACHER LIP READING LOC: Oriented TEACHER LIP READING Motor: Normal RUE, Normal LUE, Normal RLE, Normal LLE, Normal Face TEACHER LIP READING Sensory: Normal: RUE, LUE, RLE, LLE, Face - Cardiac Rhythm: Regular Murmur: None - Pulmonary Breath Sounds: bilateral Clear Respiratory Effort: Symmetrical Anesthesia Assess/Plan ASA Score: 2 Modified [place] Scale for Level of Consciousness: Cooperative, oriented, and tranquil Anesthetic Plan: General Monitoring Plan: Standard Monitors Recovery Plan: PACU (agrees to [place])
[2017-08-08] MEDS ORDERED: Ondansetron 4 MG/2 ML VIAL ONE (11:26)
[2017-08-08] MEDS ORDERED: *HR* FentaNYL (PF) 100 MCG/2 ML VIAL ONE (11:26)
[2017-08-08] MEDS ORDERED: *HR* Succinylcholine 200 MG/10 ML VIAL IVP ONE (11:26)
[2017-08-08] MEDS ORDERED: *HR* Propofol 200 MG/20 ML VIAL IVP ONE (11:26)
[2017-08-08] MEDS ORDERED: Dexamethasone 4 MG/ML VIAL ONE (11:26)
[2017-08-08] MEDS ORDERED: Lidocaine -MPF 2% 2 ML VIAL ONE (11:26)
[2017-08-08] MEDS ORDERED: Indomethacin 50 MG SUPP.RECT RC ONE (11:48)
[2017-08-08] MEDS ORDERED: *HR* Promethazine 25 MG/ML VIAL IVP PRN (11:54)
[2017-08-08] MEDS ORDERED: Ondansetron 4 MG/2 ML VIAL IVP ONE (11:54)
[2017-08-08] MEDS ORDERED: *HR* HYDROmorphone (PF) 1 MG/ML SYRINGE IVP PRN (11:54)
--- NOTE | 2017-08-08 12:39 | Anesthesia Evaluation Post Op ---
Date of Encounter: 08/08/17 Time of Encounter: 12:38 - Vital Signs Vital Signs: Selected Entries 08/08/17 12:19 08/08/17 12:29 Temperature 99.5 F Pulse Rate 86 Respiratory Rate 15 Blood Pressure 127/87 O2 Sat by Pulse Oximetry 96 - Lungs Lungs: Clear Ascult./Percussion - Airway Airway: Non-obstructed - Cardiovascular Regular Rate - Mental Status Mental Status: Alert & Oriented, Answers Appropriately - Pain Pain Scale: 0 Pain Scale used: Numeric (1 - 10) - Nausea Vomiting Nausea Vomiting: Not Present - Hydration Hydration: Ice chips, Has not voided - Discharge PostOp Status: Transfer Patient to floor
[2017-08-08] MEDS ORDERED: Ringers Solution, Lactated 1,000 ML ONE (12:42)
--- NOTE | 2017-08-08 17:33 | Internal Med Progress Note ---
Date of Encounter: 08/08/17 Time of Encounter: 18:21 - Assessment and plan (1) Acute pancreatitis Current Visit: Yes Status: Acute Assessment and plan: Patient currently doing well, without pain. Likely gallstone as cause. Surgery will be consulted in AM. Continue morphine and Zofran prn. Not on IVF right now, will resume as patient will be NPO at midnight. Qualifiers: Pancreatitis type: unspecified pancreatitis type Acute pancreatitis complication: unspecified Qualified Code(s): K85.90 - Acute pancreatitis without necrosis or infection, unspecified (2) Abdominal pain Current Visit: Yes Status: Acute Assessment and plan: Patient had ERCP done today. Patient has multiple gallstones. Per recommendations of GI service, will consult Surgery in AM for possible cholecystectomy. Qualifiers: Abdominal location: right upper quadrant Qualified Code(s): R10.11 - Right upper quadrant pain (3) Choledocholithiasis Current Visit: Yes Status: Acute - Subjective Interval history: No complaints. Patient currently has no pain. - Constitutional Vitals: Temp Pulse Resp BP Pulse Ox 97.8 F 87 16 146/83 94 08/08/17 16:30 08/08/17 16:30 08/08/17 16:30 08/08/17 16:30 08/08/17 16:30 General appearance: Present: A&O X 3, pleasant. Absent: no acute distress - Respiratory Respiratory exam: Present: CTAB. Absent: accessory muscle use, rales, rhonchi, wheezes - Cardiovascular Cardiovascular exam: Present: RRR, +S1, +S2. Absent: diastolic murmur, gallop, rubs, systolic murmur - GI/Abdominal GI/Abdominal exam: Present: normal bowel sounds, soft, no peritoneal signs. Absent: distended, tenderness - Extremities Exam Extremities exam: Present: warm, radial pulses palpable and symmetrical. Absent : calf tenderness, cyanotic, pedal edema Internal Medicine: Result - Labs CBC & Chem 7: 08/08/17 04:12 08/08/17 04:12 Labs: Short CBC 08/08/17 Range/Units 04:12 WBC 9.9 (4.3-11.1) K/mcL Hgb 16.2 (12.9-16.9) g/dL Hct 46.9 (37.5-50.1) % Plt Count 222 (140-400) K/mcL Neutrophils # 7.2 (1.6-8.9) K/mcL BMP 08/08/17 04:12 Sodium 137 Potassium 4.0 Chloride 105 Carbon Dioxide 26 BUN 10 Creatinine 0.85 Glucose 116 H Calcium 8.8 Liver Function 08/08/17 Range/Units 04:12 Total Bilirubin 3.6 H (0.3-1.0) mg/dL AST 41 H (13-39) Units/L ALT 57 H (7-52) Units/L Alkaline Phosphatase 84 (34-104) Units/L Albumin 4.2 (3.5-5.7) g/dL - ABG Interpretation ABG results: PT/INR, D-dimer PT 12.3 Seconds (9.4-12.1) H 08/08/17 04:12 - Impressions Impressions Abdomen MRI 08/08/17 08:08 IMPRESSION: 1. Acute pancreatitis. 2. Common bile duct dilatation secondary to 2 distal gallstones measuring 2-3 mm. 3. Cholelithiasis without evidence of acute cholecystitis. D/ / Teresa Ambrocio MD / Teresa Ambrocio MD Interpreting Provider: Teresa Ambrocio MD Cath/Invasive Procedure 08/08/17 12:12 IMPRESSION: ERCP images demonstrating balloon sweeping of the common bile duct. D/ / Doc Velásquez MD / Doc Velásquez MD Interpreting Provider: Doc Velásquez MD Consult Discharge Plan - Plan Referrals: NONE,PCP [Primary Care Provider] -
[2017-08-09 05:19] LABS: Basophils % 0.2 %; Eosinophils # 0.1 K/mcL (0.0-0.6); Eosinophils % 0.4 %; Hematocrit 40.9 % (37.5-50.1); Immature Granulocytes % 0.5 % (0-4); Lymphocytes # 1.8 K/mcL (0.6-4.6); Lymphocytes % 13.5 %; Mean Corpuscular HGB Conc 34.5 g/dL (31.6-35.5); Mean Corpuscular Hemoglobin 29.1 pg (28.0-33.3); Mean Corpuscular Volume 84.5 fL (83.0-100.0); Mean Platelet Volume 9.7 fL (9.4-12.4); Monocytes # 0.9 K/mcL (0.0-1.3); Monocytes % 7.1 %; Neutrophils # 10.3 K/mcL (1.6-8.9); Platelet Count 198 K/mcL (140-400); Red Blood Count 4.84 M/mcL (4.19-5.50); Red Cell Distribution Width 12.5 % (11.5-14.5); Segmented Neutrophils % 78.3 %
[2017-08-09 05:33] LABS: Hemoglobin 14.1 g/dL (12.9-16.9)
[2017-08-09 05:36] LABS: BUN/Creatinine Ratio 14 (6-26); Blood Urea Nitrogen 11 mg/dL (6-20); Calcium 8.5 mg/dL (8.6-10.3); Carbon Dioxide 28 mEq/L (23-29); Chloride 106 mEq/L (98-107); Chol/HDL Ratio 3.6 (0-4.9); Cholesterol 157 mg/dL (< 200); Glucose 97 mg/dL (70-105); HDL Cholesterol 44 mg/dL (40-59); LDL Cholesterol,Calculated 100 mg/dL (0-99); Lipase 210 Units/L (11-82); Osmolality,Calculated 285 (280-300); Potassium 4.3 mEq/L (3.5-5.1); Sodium 138 mEq/L (136-145); Triglycerides 66 mg/dL (< 150); eGFR For African Americans > 60 (> 60); eGFR For Non-African Americans > 60 (> 60)
[2017-08-09] MEDS: 0.9 % Sodium Chloride 1,000 ML IVC SCH ×3 (06:22→19:25)
[2017-08-09 10:46] LABS: Alanine Aminotransferase 60 Units/L (7-52); Albumin 3.8 g/dL (3.5-5.7); Albumin/Globulin Ratio 1.5 (1.1-2.2); Alkaline Phosphatase 96 Units/L (34-104); Aspartate Amino Transferase 48 Units/L (13-39); Bilirubin,Direct 0.7 mg/dL (0.0-0.2); Bilirubin,Indirect 3.6 mg/dL (0.0-1.2); Bilirubin,Total 4.3 mg/dL (0.3-1.0); Globulin 2.5 g/dL (2.4-3.5); Total Protein 6.3 g/dL (6.4-8.9)
--- NOTE | 2017-08-09 11:42 | Anesthesia Evaluation PreOp ---
Date of Encounter: 08/09/17 Time of Encounter: 11:40 - Past History Planned Operation: Lap. 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: Denies Any Significant HX Other Medical History: Other (gallstone pancreatitis) Anesthesia History: No Prior Anesthetic Complications Alcohol Use: none Drug use: none Medications and Allergies No Known Home Drugs 08/07/17 [History] 3 Allergy/AdvReac Type Severity Reaction Status Date / Time No Known Allergies Allergy Verified 08/07/17 17:21 - Meds/Allergy Pre-op Review Medications Reviewed: Yes Allergies Reviewed: Yes Beta Blockers on Current Med List: No Anesthesia Results - Labs 08/09/17 05:04 08/09/17 05:04 Anesthesia Exam O2 Sat Weight 97.069 kg O2 Sat by Pulse Oximetry 97 O2 Sat by Pulse Oximetry 99 O2 Sat by Pulse Oximetry 99 O2 Sat by Pulse Oximetry 95 O2 Sat by Pulse Oximetry 94 O2 Sat by Pulse Oximetry 94 O2 Sat by Pulse Oximetry 93 O2 Sat by Pulse Oximetry 94 O2 Sat by Pulse Oximetry 93 O2 Sat by Pulse Oximetry 94 O2 Sat by Pulse Oximetry 96 O2 Sat by Pulse Oximetry 96 O2 Sat by Pulse Oximetry 99 Vital Signs Temp Pulse Resp BP Pulse Ox 97.5 F L 83 16 148/93 97 08/07/17 17:01 08/07/17 17:01 08/07/17 17:01 08/07/17 17:01 08/07/17 17:01 Vital Signs/O2 Sat, Most Current Temp Pulse Resp BP Pulse Ox 98.4 F 106 16 128/83 97 08/09/17 11:30 08/09/17 11:30 08/09/17 11:30 08/09/17 11:30 08/09/17 11:30 Height: 5'9'' Weight: 214# NPO (# of Hours): > 8 hrs Pain Scale: 0 Pain Scale Used: Numeric (1 - 10) - HEENT Pupil (Motor): Pupils equal, EOMI Mallampati: II Teeth: Normal Oral Opening: Greater than 3 - SOCIAL GROUP WORKER LOC: Oriented SOCIAL GROUP WORKER Motor: Normal RUE, Normal LUE, Normal RLE, Normal LLE, Normal Face SOCIAL GROUP WORKER Sensory: Normal: RUE, LUE, RLE, LLE, Face - Cardiac Rhythm: Regular Murmur: None JVD: No Carotid Bruit: No - Pulmonary Breath Sounds: bilateral Clear Respiratory Effort: Symmetrical Anesthesia Assess/Plan ASA Score: 2 Modified [place] Scale for Level of Consciousness: Cooperative, oriented, and tranquil Anesthetic Plan: General Autologous Blood: Yes Monitoring Plan: Standard Monitors Recovery Plan: PACU
--- NOTE | 2017-08-09 12:58 | General Surgery Consult Note ---
<Luis Solis - Last Filed: 08/09/17 12:53> Date of Encounter: 08/09/17 Time of Encounter: 12:53 Assessment and Plan (1) Choledocholithiasis Current Visit: Yes Status: Acute On admission: UQ US cholelithiasis and gallbladder sludge. CBD dilated to 1.3cm , no intrahepatic biliary dilation. On admission patient had elevated WBC at 14.1, TB 3.2, AST 60, ALT 70, and lipase >1800. This AM TB 3.6, AST 41, ALT 57 and Lipase 1680. Today lipase 210, WBC 13.2, TB 4.3, T 97.7 HR 87 BP 122/76. MRCP and ERCP successfully performed on 08/08/2017. - Patient to undergo cholecystectomy today - post-surgery closely monitor vitals, IS, and ambulate with assistance. - serial AM labs - ct Tylenol for Pain and Morphine PRN for breakthrough pain - ct Zofran for nausea - NPO - ct IVF (2) Acute pancreatitis Current Visit: Yes Status: Acute secondary to choledocholithiasis. lipase >1800 -> 1680 -> 210 (today). per management of medicine team Qualifiers: Pancreatitis type: unspecified pancreatitis type Acute pancreatitis complication: unspecified Qualified Code(s): K85.90 - Acute pancreatitis without necrosis or infection, unspecified History of Present Illness Consult date: 08/09/17 Reason for consult: abdominal pain Requesting physician: Delmy Snider History of present illness: Mr Ennis is a 37 year old male w/ pmh of gallstones presented to [place] ED on with RUQ abdominal pain. per chart review, patient underwent MRCP and ERCP on 08/08/17. ERCP was performed by Dr. Reese. Surgery was consulted today. Today he reports that his RUQ pain has drastically reduced. Patient denies radiation of pain. He denies Fever, palpitations/racing heart, new bleeding, or discomfort from the procedure yesterday. Past Med Surg Social Fam HX - Past Medical History Medical history: other Psychiatric history: no psych history - Social History Smoking Status: Never smoker Smokeless Tobacco Status: No Alcohol use: none Drug use: none - Family History Mother Living Status: Age at : 56 Cause of : CHF Hx Family Cardiac Disorders: Yes Hx Family Respiratory Disorders: Yes (COPD) Hx Family Endocrine Disorder: Yes Father Living Status: Age at : 56 Cause of : cancer Medications and Allergies No Known Home Drugs 08/07/17 [History] 3 Allergy/AdvReac Type Severity Reaction Status Date / Time No Known Allergies Allergy Verified 08/07/17 17:21 Review of Systems All systems PM: A 10-system review of systems was performed and is negative for pertinent findings except as documented above in the HPI. - Constitutional no anorexia, no chills, no fatigue, no fever(s), no headache(s), no increased appetite, no lethargy, no night sweats, no weakness, no weight gain, no weight loss - EENT Nose, mouth and throat: no epistaxis, no headache(s), no post-nasal drip - Cardiovascular no chest pain, no chest pain at rest, no chest pain with activity, no dyspnea on exertion, no edema, no irregular heart rhythm, no radiating jaw, neck or arm pain, no leg edema, no lightheadedness, no palpitations, no radiating pain, no rapid heart rate, no slow heart rate - Respiratory no cough, no dyspnea, no hemoptysis, no dyspnea on exertion, no wheezing, no snoring, no stridor, no pain on inspiration - Gastrointestinal no abdominal pain, no belching, no bloating, no change in bowel habits, no change in stool character, no coffee ground emesis, no constipation, no cramping , no early satiety, no excessive flatus, no loose stools, no melena, no nausea - Genitourinary no dysuria, no hematuria, no urinary frequency, no urinary hesitancy, no urinary incontinence, no urinary urgency - Neurological no behavioral changes, no confusion, no dizziness, no focal weakness, no numbness - Psychiatric no anxiety, no depression, no hopelessness - Endocrine no cold intolerance, no fatigue, no flushing, no heat intolerance, no palpitations, no polydipsia, no polyphagia, no polyuria General Surgery Exam Initial Vital Signs Temp Pulse Resp BP Pulse Ox 97.5 F L 83 16 148/93 97 08/07/17 17:01 08/07/17 17:01 08/07/17 17:01 08/07/17 17:01 08/07/17 17:01 - General physical appearance well developed, well nourished, no distress, obese. negative: jaundice - Eyes normal ocular movement - ENT normal mucosa, no hearing loss, no congestion - Respiratory normal expansion, normal respiratory effort, clear to percussion, clear to auscultation - Cardiovascular Cardiovascular exam: Present: RRR, 15, 16 - Abdomen Abdomen general surgery: Present: bowel sounds present, soft, non tender ( negative for murphys) - Integumentary Integumentary general surgery: Present: warm and dry, no abnormal pigmentation - Neurologic Present: CN 2-12 grossly intact, normal coordination, normal sensation - Psychiatric Psychiatric general surgery: Present: appropriate, oriented to person, oriented to place, oriented to time, speech is normal, memory intact Exam Initial Vital Signs Temp Pulse Resp BP Pulse Ox 97.5 F L 83 16 148/93 97 08/07/17 17:01 08/07/17 17:01 08/07/17 17:01 08/07/17 17:01 08/07/17 17:01 Results - Labs 08/09/17 05:04 08/09/17 05:04 Abnormal lab results WBC 13.2 K/mcL (4.3-11.1) H 08/09/17 05:04 Neutrophils # 10.3 K/mcL (1.6-8.9) H 08/09/17 05:04 Nucleated RBCs/100 WBC 0.2 /100 WBC (0) H 08/08/17 04:12 PT 12.3 Seconds (9.4-12.1) H 08/08/17 04:12 Calcium 8.5 mg/dL (8.6-10.3) L 08/09/17 05:04 Total Bilirubin 4.3 mg/dL (0.3-1.0) H 08/09/17 05:04 Direct Bilirubin 0.7 mg/dL (0.0-0.2) H 08/09/17 05:04 Indirect Bilirubin 3.6 mg/dL (0.0-1.2) H 08/09/17 05:04 AST 48 Units/L (13-39) H 08/09/17 05:04 ALT 60 Units/L (7-52) H 08/09/17 05:04 Serum Total Protein 6.3 g/dL (6.4-8.9) L 08/09/17 05:04 LDL Cholesterol, Calc 100 mg/dL (0-99) H 08/09/17 05:04 Lipase 210 Units/L (11-82) H 08/09/17 05:04 Ur Specific [place] >= 1.030 (1.010-1.025) H 08/07/17 17:11 Urine Protein 30 mg/dL (Neg-Trace) H 08/07/17 17:11 Urine Ketones Trace mg/dL (Negative) H 08/07/17 17:11 Urine Bilirubin Small (Negative) H 08/07/17 17:11 Ur Squamous Epith Cells Many per lpf (None-Few) H 08/07/17 17:11 Diabetes panel 08/09/17 Range/Units 05:04 Sodium 138 (136-145) mEq/L Potassium 4.3 (3.5-5.1) mEq/L Chloride 106 (98-107) mEq/L Carbon Dioxide 28 (23-29) mEq/L BUN 11 (6-20) mg/dL Creatinine 0.76 (0.70-1.30) mg/dL Glucose 97 (70-105) mg/dL Calcium 8.5 L (8.6-10.3) mg/dL AST 48 H (13-39) Units/L ALT 60 H (7-52) Units/L Alkaline Phosphatase 96 (34-104) Units/L Albumin 3.8 (3.5-5.7) g/dL Triglycerides 66 (< 150) mg/dL HDL Cholesterol 44 (40-59) mg/dL Calcium panel 08/09/17 Range/Units 05:04 Calcium 8.5 L (8.6-10.3) mg/dL Albumin 3.8 (3.5-5.7) g/dL Pituitary panel 08/09/17 Range/Units 05:04 Sodium 138 (136-145) mEq/L Potassium 4.3 (3.5-5.1) mEq/L Chloride 106 (98-107) mEq/L Carbon Dioxide 28 (23-29) mEq/L BUN 11 (6-20) mg/dL Creatinine 0.76 (0.70-1.30) mg/dL Glucose 97 (70-105) mg/dL Calcium 8.5 L (8.6-10.3) mg/dL Adrenal panel 08/09/17 Range/Units 05:04 Sodium 138 (136-145) mEq/L Potassium 4.3 (3.5-5.1) mEq/L Chloride 106 (98-107) mEq/L Carbon Dioxide 28 (23-29) mEq/L BUN 11 (6-20) mg/dL Creatinine 0.76 (0.70-1.30) mg/dL Glucose 97 (70-105) mg/dL Calcium 8.5 L (8.6-10.3) mg/dL Total Bilirubin 4.3 H (0.3-1.0) mg/dL AST 48 H (13-39) Units/L ALT 60 H (7-52) Units/L Alkaline Phosphatase 96 (34-104) Units/L Albumin 3.8 (3.5-5.7) g/dL All other labs normal. Consult Discharge Plan - Plan Referrals: NONE,PCP [Primary Care Provider] - <Lou Montes De Oca - Last Filed: 08/09/17 13:34> Date of Encounter: 08/09/17 Time of Encounter: 09:50 Assessment and Plan (1) Acute gallstone pancreatitis Current Visit: Yes Status: Acute will plan laparoscopic cholecystectomy with cholangiograms if possible, possible open. Risk and benefits were discussed with the patient he wishes to proceed. Lipase is down in the 200s today. Pain is significantly improved per patient. Start Mefoxin. Continue nothing by mouth, continue IV fluid hydration, when necessary pain medication, when necessary antibiotics. Serial abdominal exams. Trend labs (2) Elevated LFTs Current Visit: Yes Status: Acute increased yesterday after ercp, trend (3) Choledocholithiasis Current Visit: Yes Status: Acute patient underwent ercp, sphincterotomy and stone extraction yesterday lft increased today as well as wbc, start cefoxitin will plan laparoscopic cholecystectomy with cholangiograms if possible, possible open, risks and benefits discussed with patient and he wishes to proceed npo continue continue IVF hydration prn pain control (4) Leukocytosis Current Visit: Yes Status: Acute will start cefoxitin Qualifiers: Leukocytosis type: unspecified Qualified Code(s): D72.829 - Elevated white blood cell count, unspecified History of Present Illness History of present illness: Patient was diagnosed with gallstones years ago and had symptoms about 7 yrs ago in the past but have not bothered him since that time. Two days ago he started having upper midepigastric abdominal pain which was sharp with a little radiation into his back. He had nausea but without emesis. No diarrhea. Due to unrelenting and progressive pain he presented to the ED and was diagnosed with gallstone pancreatitis. He underwent an ERCP with sphincterotomy and duct sweep yesterday. Today his lft's have increased again and his lipase is down to 210. He feels significantly better today but a "little sore". No nasuea or emesis. 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 General Surgery Exam Initial Vital Signs Temp Pulse Resp BP Pulse Ox 97.5 F L 83 16 148/93 97 08/07/17 17:01 08/07/17 17:01 08/07/17 17:01 08/07/17 17:01 08/07/17 17:01 - General physical appearance well developed, well nourished, no distress. negative: obese - Eyes PERRL, normal ocular movement - ENT normal mucosa, normocephalic - Neck trachea midline - Respiratory normal expansion, clear to auscultation - Cardiovascular Cardiovascular exam: Present: RRR, no murmurs/rubs/gallops - Abdomen Abdomen general surgery: Present: bowel sounds present, soft, tender (mildly). Absent: distended, guarding, rebound Abdominal Tenderness: Present: epigastic - Integumentary Integumentary general surgery: Present: warm and dry, no abnormal pigmentation - Neurologic Present: CN 2-12 grossly intact, normal coordination - Musculoskeletal Present: normal posture - Psychiatric Psychiatric general surgery: Present: A&Ox3, speech is normal Exam Initial Vital Signs Temp Pulse Resp BP Pulse Ox 97.5 F L 83 16 148/93 97 08/07/17 17:01 08/07/17 17:01 08/07/17 17:01 08/07/17 17:01 08/07/17 17:01 Results - Labs 08/09/17 05:04 08/09/17 05:04 Short CBC 08/09/17 Range/Units 05:04 WBC 13.2 H (4.3-11.1) K/mcL Hgb 14.1 D (12.9-16.9) g/dL Hct 40.9 (37.5-50.1) % Plt Count 198 (140-400) K/mcL Neutrophils # 10.3 H (1.6-8.9) K/mcL BMP 08/09/17 Range/Units 05:04 Sodium 138 (136-145) mEq/L Potassium 4.3 (3.5-5.1) mEq/L Chloride 106 (98-107) mEq/L Carbon Dioxide 28 (23-29) mEq/L BUN 11 (6-20) mg/dL Creatinine 0.76 (0.70-1.30) mg/dL Glucose 97 (70-105) mg/dL Calcium 8.5 L (8.6-10.3) mg/dL Liver Function 08/09/17 Range/Units 05:04 Total Bilirubin 4.3 H (0.3-1.0) mg/dL Direct Bilirubin 0.7 H (0.0-0.2) mg/dL AST 48 H (13-39) Units/L ALT 60 H (7-52) Units/L Alkaline Phosphatase 96 (34-104) Units/L Albumin 3.8 (3.5-5.7) g/dL Vital Signs Temp Pulse Resp BP Pulse Ox 08/09/17 11:30 98.4 F 106 16 128/83 97 08/09/17 06:42 97.7 F 87 16 122/76 99 08/09/17 03:50 97.9 F 77 14 115/70 99 08/08/17 19:48 98.2 F 70 17 124/76 95 08/08/17 16:30 97.8 F 87 16 146/83 94 08/08/17 15:23 97.8 F 71 16 124/80 94 08/08/17 14:15 98.2 F 70 16 134/88 93 08/08/17 13:50 98.3 F 71 16 146/91 94 Intake and Output 08/08/17 08/09/17 08/09/17 23:59 07:59 15:59 Intake Total 240 / 240 1000 / 1000 Output Total 0 / 0 750 / 750 Balance 240 / 240 250 / 250 Intake: IV Fluids 1000 / 1000 0.9 % Sodium Chloride 1,000 ML 1000 / 1000 @ 100 mls/hr IVC .Q10H KATIE Rx#: [id number] Oral 240 / 240 0 / 0 Output: Urine 0 / 0 750 / 750 Other: Meal npo # Voids 1 # Bowel Movements 0 0 Weight 97.069 kg Blood Glucose* 92 84 Patient Weight 08/09/17 23:59 Weight 97.069 kg - Imaging US - abdomen: report reviewed Additional studies: MRCP report - Attending Attestation I examined this patient and my medical decision-making was reviewed with the Resident Physician. I agree with the documented findings, disposition and treatment plan as described except to the extent set forth below.
[2017-08-09] MEDS ORDERED: CefOXitin 2,000 MG VIAL ONE (13:29)
[2017-08-09] MEDS: cefOXitin 2,000 MG in Water for inj. (sterile) 10 ML IVP SCH ×2 (13:58→19:25)
[2017-08-09] MEDS ORDERED: Ringers Solution, Lactated 1,000 ML IVC SCH (14:16)
[2017-08-09] MEDS ORDERED: Ondansetron 4 MG/2 ML VIAL IVP ONE (14:37)
[2017-08-09] MEDS ORDERED: *HR* HYDROmorphone (PF) 1 MG/ML SYRINGE IVP PRN (14:37)
[2017-08-09] MEDS ORDERED: *HR* Succinylcholine 200 MG/10 ML VIAL IVP ONE (15:05)
[2017-08-09] MEDS ORDERED: *HR* Morphine 10 MG/ML VIAL ONE (15:05)
[2017-08-09] MEDS ORDERED: *HR* Propofol 200 MG/20 ML VIAL IVP ONE (15:05)
[2017-08-09] MEDS ORDERED: Neostigmine Methylsulfate 3 MG/3 ML SYRINGE ONE (15:05)
[2017-08-09] MEDS ORDERED: *HR* FentaNYL (PF) 100 MCG/2 ML VIAL ONE ×2 (15:05)
[2017-08-09] MEDS ORDERED: Ondansetron 4 MG/2 ML VIAL ONE (15:05)
[2017-08-09] MEDS ORDERED: Dexamethasone 4 MG/ML VIAL ONE (15:05)
[2017-08-09] MEDS ORDERED: *HR* Rocuronium Bromide 50 MG/5 ML VIAL ONE (15:05)
--- NOTE | 2017-08-09 15:18 | Operative Note ---
Date of procedure: 08/09/17 Pre-op diagnosis: gallstone pancreatitis Post-op diagnosis: same Procedure: Laparoscopic cholecystectomy with intraoperative cholangiograms Complications: none immediate Anesthesia: GETA, local Local Anesthetics: 0.5% Sensorcaine HCL SubQ (cc) (30) Surgeon: Lou Montes De Oca Was there an event marketing assistant present: No Roving Winder Other: Esequiel Bahena Estimated blood loss (cc): 10 Specimen: gallbladder Condition: stable Disposition: PACU Procedure in Detail: The patient was brought into the operating suite and placed supine on the operating table. Sign-in was performed and everyone was in agreement. Anesthesia was induced and patient was endotracheally intubated by anesthesia without incident and they also placed an OG tube. The abdomen was prepped and draped in the usual sterile fashion. A timeout was performed again everyone was in agreement. A supraumbilical incision was made through the skin into the subcutaneous tissue with an 11 blade. Towel clamps were placed on either side of the umbilicus for retraction. S retractors were used to dissect down to the anterior abdominal wall linea alba fascia. A Veress needle was placed through this incision and a water drop test confirmed placement and the abdomen was insufflated. The abdomen was entered with a 5 mm 0 degree laparoscope on a 5 mm Xcel trocar. The area and entry was visualized was no bleeding and no apparent bowel injury. A 5 mm subxiphoid port was placed under direct visualization after first incising the skin with an 11 blade. A right upper quadrant subcostal position midclavicular line 5 mm port was placed under direct visualization after first incising skin with 11 blade. The laparoscope was placed in this and we exchanged the supraumbilical port for a 12 mm port under direct visualization. The last 5 mm port was placed in the right upper quadrant subcostal position anterior axillary line after first incising the skin with an 11 blade. The patient was placed in steep reverse Trendelenburg left side down position. The dome of the gallbladder was grasped and retracted cephalad. Omental adhesions to the body and infundibulum of the gallbladder were taken down bluntly with the [place]. The infundibulum was grasped and retracted laterally. Using the [place] we dissected out the cystic duct and cystic artery. Two 5 mm Hemoclips were placed proximally on the cystic artery, one distally and it was transected with curved scissors. A 5 mm metal Hemoclip was placed proximally on the cystic duct. The cystic duct was partially transected with curved scissors. Using the Hobson clamp, the cholangiocatheter was introduced into the partially transected cystic duct with the [place]. A metal 5 mm hemoclip was placed across the proximal cystic duct and the cholangiocatheter. The catheter flushed easily. The patient was placed in Trendelenberg position. Cholangiograms were obtained showing contrast up into the left and right intrahepatic ducts down through the common hepatic and common bile duct into the duodenum. There appeared to be a small superior left duct defect that does fill, confirmed by radiology. The patient was returned to reverse Trendelenburg left side down position. The clip on the cholangiocatheter and proximal cystic duct was removed as well as the cholangiocatheter. Three 5 mm hemoclips were placed proximally on the cystic duct and it was transected with curved scissors. The gallbladder was removed off the cystic plate with the Bovie. Any bleeding points were stopped with the Bovie. The gallbladder was placed in a laparoscopic Endo Catch bag and removed via the supraumbilical incision site. The inferior edge of the liver was bluntly retracted cephalad and the cystic plate was copiously irrigated with sterile saline. There was no bleeding or apparent bile leak from the cystic plate and the clips on the cystic artery and duct were intact. All irrigation was suctioned free from the abdomen. All insufflation was suctioned free from the abdomen and the ports removed. The abdominal wall at the supraumbilical incision site was closed with a 0 Vicryl [id number] stitch. 30 mL of 0.5% Marcaine was injected subcutaneously at the 4 port sites. The skin at the three 5 mm port sites were closed with 4-0 Monocryl interrupted subcuticular stitches. The skin at the supraumbilical incision site was closed with a 4-0 Monocryl running subcuticular stitch. Steri-Strips were applied to all wounds. The patient was awoken in the operating suite having tolerated the procedure well and were taken to PACU in stable condition after all lap and ensuring counts were correct at the end of the case.
--- NOTE | 2017-08-09 15:38 | Event Note ---
Date of Encounter: 08/09/17 Time of Encounter: 15:38 while intubating patient anesthesia noted a right vocal cord nodule/mass, will need to followup with ENT as outpatient, girlfriend notified as well
--- NOTE | 2017-08-09 16:02 | Anesthesia Evaluation Post Op ---
Date of Encounter: 08/09/17 Time of Encounter: 16:01 - Vital Signs Vital Signs: Vital Signs/O2 Sat, Most Current Temp Pulse Resp BP Pulse Ox 99.2 F 104 16 130/81 95 08/09/17 15:54 08/09/17 15:54 08/09/17 15:54 08/09/17 15:54 08/09/17 15:54 - Lungs Lungs: Clear Ascult./Percussion - Airway Airway: Non-obstructed - Cardiovascular Regular Rate - Mental Status Mental Status: Alert & Oriented, Answers Appropriately - Pain Pain Scale: 0 Pain Scale used: Numeric (1 - 10) - Nausea Vomiting Nausea Vomiting: Not Present - Hydration Hydration: Ice chips, Has not voided - Discharge PostOp Status: Transfer Patient to floor
[2017-08-09] MEDS ORDERED: Ondansetron 4 MG/2 ML VIAL IVP PRN (16:13)
[2017-08-09] MEDS ORDERED: Naloxone 0.4 MG/ML INJ IVP PRN (16:13)
[2017-08-09] MEDS ORDERED: *HR* OxyCODONE/APAP 5/325 TABLET PO PRN (16:13)
[2017-08-09] MEDS ORDERED: *HR* Morphine 2 MG/ML SYRINGE IVP PRN (16:13)
--- NOTE | 2017-08-09 23:52 | Internal Med Progress Note ---
Date of Encounter: 08/09/17 Time of Encounter: 17:48 - Assessment and plan (1) S/P laparoscopic cholecystectomy Current Visit: Yes Status: Acute Assessment and plan: POD #0 status-post laparoscopic cholecystectomy, doing well. Ambulating without difficulty. While intubating patient it was noted by anesthesia that there was a right vocal cord nodule. We will arrange for ENT consult, OP most likely. (2) Acute pancreatitis Current Visit: Yes Status: Acute Assessment and plan: Patient currently doing well, without pain. Likely gallstone as cause. Surgery will be consulted in AM. Continue morphine and Zofran prn. Not on IVF right now, will resume as patient will be NPO at midnight. Qualifiers: Pancreatitis type: unspecified pancreatitis type Acute pancreatitis complication: unspecified Qualified Code(s): K85.90 - Acute pancreatitis without necrosis or infection, unspecified (3) Abdominal pain Current Visit: Yes Status: Acute Assessment and plan: Patient had ERCP done today. Patient has multiple gallstones. Per recommendations of GI service, will consult Surgery in AM for possible cholecystectomy. Qualifiers: Abdominal location: right upper quadrant Qualified Code(s): R10.11 - Right upper quadrant pain (4) Choledocholithiasis Current Visit: Yes Status: Acute - Subjective Interval history: Patient POD #0 status-post laparoscopic cholecystectomy, doing well. Ambulating without difficulty. While intubating patient it was noted by anesthesia that there was a right vocal cord nodule. We will arrange for ENT consult, OP most likely. - Constitutional Vitals: Temp Pulse Resp BP Pulse Ox 98.0 F 94 16 130/74 91 08/09/17 23:41 08/09/17 23:41 08/09/17 23:41 08/09/17 23:41 08/09/17 23:41 General appearance: Present: A&O X 3, pleasant. Absent: no acute distress Exam: CVS: RRR Pulm: CTAB Abd: incisions c/d/i Ext: no edema Internal Medicine: Result - Labs CBC & Chem 7: 08/09/17 05:04 08/09/17 05:04 Labs: Short CBC 08/09/17 Range/Units 05:04 WBC 13.2 H (4.3-11.1) K/mcL Hgb 14.1 D (12.9-16.9) g/dL Hct 40.9 (37.5-50.1) % Plt Count 198 (140-400) K/mcL Neutrophils # 10.3 H (1.6-8.9) K/mcL BMP 08/09/17 05:04 Sodium 138 Potassium 4.3 Chloride 106 Carbon Dioxide 28 BUN 11 Creatinine 0.76 Glucose 97 Calcium 8.5 L Liver Function 08/09/17 Range/Units 05:04 Total Bilirubin 4.3 H (0.3-1.0) mg/dL Direct Bilirubin 0.7 H (0.0-0.2) mg/dL AST 48 H (13-39) Units/L ALT 60 H (7-52) Units/L Alkaline Phosphatase 96 (34-104) Units/L Albumin 3.8 (3.5-5.7) g/dL - ABG Interpretation ABG results: PT/INR, D-dimer PT 12.3 Seconds (9.4-12.1) H 08/08/17 04:12 - Impressions Impressions Cholangiogram,Operative 08/09/17 00:00 IMPRESSION: Intraoperative images for cholangiogram as described above. Please see surgical report for complete details. D/ / Rohan Mast MD / Rohan Mast MD Interpreting Provider: Rohan Mast MD - VTE Documentation of Mechanical Device: Intermittent pneumatic compression device Consult Discharge Plan - Plan Referrals: NONE,PCP [Primary Care Provider] -
[2017-08-10] MEDS ORDERED: cefOXitin 2,000 MG in Water for inj. (sterile) 20 ML 10 ML IVP SCH
[2017-08-10] MEDS: 0.9 % Sodium Chloride 1,000 ML IVC SCH (03:09)
[2017-08-10 04:18] LABS: Basophils % 0.1 %; Eosinophils % 0.2 %; Hematocrit 36.6 % (37.5-50.1); Hemoglobin 12.6 g/dL (12.9-16.9); Immature Granulocytes % 0.5 % (0-4); Lymphocytes # 1.3 K/mcL (0.6-4.6); Lymphocytes % 10.5 %; Mean Corpuscular HGB Conc 34.4 g/dL (31.6-35.5); Mean Corpuscular Hemoglobin 29.4 pg (28.0-33.3); Mean Corpuscular Volume 85.3 fL (83.0-100.0); Mean Platelet Volume 9.8 fL (9.4-12.4); Monocytes % 7.9 %; Neutrophils # 9.8 K/mcL (1.6-8.9); Platelet Count 184 K/mcL (140-400); Red Blood Count 4.29 M/mcL (4.19-5.50); Red Cell Distribution Width 12.7 % (11.5-14.5); Segmented Neutrophils % 80.8 %
[2017-08-10 04:34] LABS: Albumin 3.5 g/dL (3.5-5.7); Albumin/Globulin Ratio 1.3 (1.1-2.2); Bilirubin,Direct 0.8 mg/dL (0.0-0.2); Bilirubin,Indirect 2.1 mg/dL (0.0-1.2); Bilirubin,Total 2.9 mg/dL (0.3-1.0); Globulin 2.6 g/dL (2.4-3.5); Total Protein 6.1 g/dL (6.4-8.9)
[2017-08-10 04:36] LABS: BUN/Creatinine Ratio 15 (6-26); Blood Urea Nitrogen 11 mg/dL (6-20); Calcium 8.1 mg/dL (8.6-10.3); Carbon Dioxide 24 mEq/L (23-29); Chloride 105 mEq/L (98-107); Glucose 105 mg/dL (70-105); Osmolality,Calculated 282 (280-300); Potassium 4.2 mEq/L (3.5-5.1); Sodium 136 mEq/L (136-145); eGFR For African Americans > 60 (> 60); eGFR For Non-African Americans > 60 (> 60)
[2017-08-10 10:46] VITALS: BP 127/78
--- NOTE | 2017-08-10 10:54 | General Surgery Progress Note ---
<Concetta Griffin - Last Filed: 08/10/17 13:08> Date of Encounter: 08/10/17 Time of Encounter: 08:30 - Assessment and Plan (1) Choledocholithiasis Status: Acute POD #1 s/p laparoscopic cholecystectomy 2/2 choledocholithiasis RUQ US 08/07/17--cholelithiasis and gallbladder sludge; CBD dilated to 1.3cm, no intrahepatic biliary dilation Afebrile and VSS WBC (12.1), TBili (2.9), and lipase (44) trending down since admission Plan: 1. Regular diet--breakfast, lunch 2. Anticipate d/c home today if tolerates diet 3. Stop antibiotics 4. Outpatient f/u with Dr. Montes De Oca 5. 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 Acute pancreatitis resolved 2. Regular diet Qualifiers: Pancreatitis type: unspecified pancreatitis type Acute pancreatitis complication: unspecified Qualified Code(s): K85.90 - Acute pancreatitis without necrosis or infection, unspecified Subjective Patient reports: no new complaints, feels better, pain is less Narrative: Seen and examined this morning, patient's significant other present at bedside. Patient states he feels well, much better than yesterday. Occasional discomfort at incision sites, but pain is well controlled. Patient would like to have regular diet. Patient has no complaints at this time; he feels comfortable going home today as long he tolerates breakfast and lunch well. Objective Vital Signs - Last 8 Hours Temp Pulse Resp BP Pulse Ox 08/10/17 10:41 97.7 F 83 16 127/78 97 08/10/17 06:53 98.1 F 99 16 112/68 91 08/10/17 04:00 98.1 F 73 16 112/74 95 Intake and Output 08/09/17 08/10/17 08/10/17 23:59 07:59 15:59 Intake Total 1000 / 1000 120 / 120 Output Total 0 / 0 0 / 0 Balance 0 / 0 1000 / 1000 120 / 120 Intake: IV Fluids 1000 / 1000 0.9 % Sodium Chloride 1,000 ML 1000 / 1000 @ 100 mls/hr IVC .Q10H [facility] Rx#: [id number] Oral 120 / 120 Output: Urine 0 / 0 0 / 0 Other: Meal Breakfast Percent of Meal Consumed 5% # Voids 1 # Bowel Movements 0 0 Weight 97.9 kg Blood Glucose* 105 Patient Weight 08/10/17 23:59 Weight 97.9 kg - General physical appearance well developed, well nourished, no distress, other (no jaundice) - Eyes other (anicteric sclera), normal ocular movement - Respiratory normal expansion, normal respiratory effort, clear to auscultation - Cardiovascular Cardiovascular exam: Present: RRR. Absent: murmurs - Abdomen Abdomen: Present: soft, non tender Hernia: none - Incision Incision: Present: clean and dry, intact - Neurologic CN 2-12 grossly intact, other (no focal neuro deficits; alert; oriented x3) - Labs 08/10/17 04:03 08/10/17 04:03 Diabetes panel 08/09/17 08/10/17 08/10/17 Range/Units 05:04 04:03 04:03 Sodium 136 (136-145) mEq/L Potassium 4.2 (3.5-5.1) mEq/L Chloride 105 (98-107) mEq/L Carbon Dioxide 24 (23-29) mEq/L BUN 11 (6-20) mg/dL Creatinine 0.73 (0.70-1.30) mg/dL Glucose 105 (70-105) mg/dL Calcium 8.1 L (8.6-10.3) mg/dL AST 48 H 65 H (13-39) Units/L ALT 60 H 68 H (7-52) Units/L Alkaline Phosphatase 96 92 (34-104) Units/L Albumin 3.8 3.5 (3.5-5.7) g/dL Calcium panel 08/09/17 08/10/17 08/10/17 Range/Units 05:04 04:03 04:03 Calcium 8.1 L (8.6-10.3) mg/dL Albumin 3.8 3.5 (3.5-5.7) g/dL Pituitary panel 08/10/17 Range/Units 04:03 Sodium 136 (136-145) mEq/L Potassium 4.2 (3.5-5.1) mEq/L Chloride 105 (98-107) mEq/L Carbon Dioxide 24 (23-29) mEq/L BUN 11 (6-20) mg/dL Creatinine 0.73 (0.70-1.30) mg/dL Glucose 105 (70-105) mg/dL Calcium 8.1 L (8.6-10.3) mg/dL Adrenal panel 08/09/17 08/10/17 08/10/17 Range/Units 05:04 04:03 04:03 Sodium 136 (136-145) mEq/L Potassium 4.2 (3.5-5.1) mEq/L Chloride 105 (98-107) mEq/L Carbon Dioxide 24 (23-29) mEq/L BUN 11 (6-20) mg/dL Creatinine 0.73 (0.70-1.30) mg/dL Glucose 105 (70-105) mg/dL Calcium 8.1 L (8.6-10.3) mg/dL Total Bilirubin 4.3 H 2.9 H (0.3-1.0) mg/dL AST 48 H 65 H (13-39) Units/L ALT 60 H 68 H (7-52) Units/L Alkaline Phosphatase 96 92 (34-104) Units/L Albumin 3.8 3.5 (3.5-5.7) g/dL - VTE Documentation of Mechanical Device: Intermittent pneumatic compression device Consult Discharge Plan - Plan Additional Instructions: Follow up with general surgery (Dr. Montes De Oca) within 2 weeks Follow up with [facility] Follow up with PCP within 1 week Over the counter tylenol and ibuprofen for pain If you experience fever, chills, chest pain, shortness of breath, vomiting, or abdominal pain, return to emergency department Referrals: [facility] [Provider Group] Lou Montes De Oca MD [Partnered Physician] - NONE,PCP [Primary Care Provider] - <Doc Hester - Last Filed: 08/10/17 18:43> Date of Encounter: 08/10/17 Objective Vital Signs - Last 8 Hours Temp Pulse Resp BP Pulse Ox 08/10/17 10:41 97.7 F 83 16 127/78 97 Intake and Output 08/10/17 08/10/17 08/10/17 07:59 15:59 23:59 Intake Total 1010 / 1010 120 / 120 Output Total 0 / 0 Balance 1010 / 1010 120 / 120 Intake: IV Fluids 1010 / 1010 0.9 % Sodium Chloride 1,000 ML 1000 / 1000 @ 100 mls/hr IVC .Q10H [facility] Rx#: [id number] Mefoxin 2,000 MG In Water for 10 inj. (sterile) 10 ML @ 150 mls/ hr IVP Q8HR [facility] Rx#:[id number] Oral 120 / 120 Output: Urine 0 / 0 Other: Meal Breakfast Percent of Meal Consumed 5% # Voids 1 # Bowel Movements 0 0 Weight 97.9 kg Blood Glucose* 105 Patient Weight 08/10/17 23:59 Weight 97.9 kg - Labs 08/10/17 04:03 08/10/17 04:03 Diabetes panel 08/10/17 08/10/17 Range/Units 04:03 04:03 Sodium 136 (136-145) mEq/L Potassium 4.2 (3.5-5.1) mEq/L Chloride 105 (98-107) mEq/L Carbon Dioxide 24 (23-29) mEq/L BUN 11 (6-20) mg/dL Creatinine 0.73 (0.70-1.30) mg/dL Glucose 105 (70-105) mg/dL Calcium 8.1 L (8.6-10.3) mg/dL AST 65 H (13-39) Units/L ALT 68 H (7-52) Units/L Alkaline Phosphatase 92 (34-104) Units/L Albumin 3.5 (3.5-5.7) g/dL Calcium panel 08/10/17 08/10/17 Range/Units 04:03 04:03 Calcium 8.1 L (8.6-10.3) mg/dL Albumin 3.5 (3.5-5.7) g/dL Pituitary panel 08/10/17 Range/Units 04:03 Sodium 136 (136-145) mEq/L Potassium 4.2 (3.5-5.1) mEq/L Chloride 105 (98-107) mEq/L Carbon Dioxide 24 (23-29) mEq/L BUN 11 (6-20) mg/dL Creatinine 0.73 (0.70-1.30) mg/dL Glucose 105 (70-105) mg/dL Calcium 8.1 L (8.6-10.3) mg/dL Adrenal panel 08/10/17 08/10/17 Range/Units 04:03 04:03 Sodium 136 (136-145) mEq/L Potassium 4.2 (3.5-5.1) mEq/L Chloride 105 (98-107) mEq/L Carbon Dioxide 24 (23-29) mEq/L BUN 11 (6-20) mg/dL Creatinine 0.73 (0.70-1.30) mg/dL Glucose 105 (70-105) mg/dL Calcium 8.1 L (8.6-10.3) mg/dL Total Bilirubin 2.9 H (0.3-1.0) mg/dL AST 65 H (13-39) Units/L ALT 68 H (7-52) Units/L Alkaline Phosphatase 92 (34-104) Units/L Albumin 3.5 (3.5-5.7) g/dL - Attending Attestation I have personally seen and examined the patient. I have reviewed pertinent labs , imaging, progress notes, including this one. I agree with the above assessment and plan and wish to include the following... 37M admitted with gallstone pancreatitis, choledocholithiasis now s/p ERCP with decompression, lap nichole with IOC and decrease in T. bili; afebrile; tolerating liquids; pain controlled, voiding on his own; non peritoneal; incisions c/d/i; okay for discharge today;
--- NOTE | 2017-08-10 12:39 | Discharge Summary ---
<Concetta Griffin - Last Filed: 08/10/17 14:33> Date of Encounter: 08/10/17 Time of Encounter: 13:35 - Discharge Diagnosis (1) Choledocholithiasis Priority: Primary Status: Resolved Comments: POD #1 s/p laparoscopic cholecystectomy 2/2 choledocholithiasis RUQ 08/07/17--cholelithiasis and gallbladder sludge; CBD dilated to 1.3cm, no intrahepatic biliary dilation Afebrile and vital signs stable (T 97.7 RR 16 HR 83 BP 127/78 SpO2 97% RA) WBC (12.1), TBili (2.9), and lipase (44) trending down since admission Tolerated breakfast and lunch well Patient feels ready to go home Plan: 1. stable to safely d/c home 2. Regular diet 3. Outpatient f/u with Dr. Montes De Oca 4. Pain control with Tylenol and ibuprofen OTC (2) Acute pancreatitis Priority: Secondary Status: Resolved Comments: Acute pancreatitis 2/2 choledocholithiasis MRCP and ERCP 08/08/17 helped relieve pain Lipase continues to trend downward, today WNL @ 44 (vs >1800 on admission) Plan: 1. Acute pancreatitis resolved 2. Regular diet resumed and well tolerated Qualifiers: Pancreatitis type: unspecified pancreatitis type Acute pancreatitis complication: unspecified Qualified Code(s): K85.90 - Acute pancreatitis without necrosis or infection, unspecified - Discharge Medications Home Medications: No Known Home Drugs 08/07/17 [History] Allergies/Adverse Reactions: 3 Allergy/AdvReac Type Severity Reaction Status Date / Time No Known Allergies Allergy Verified 08/07/17 17:21 General Surgery Exam Initial Vital Signs Temp Pulse Resp BP Pulse Ox 97.5 F L 83 16 148/93 97 08/07/17 17:01 08/07/17 17:01 08/07/17 17:01 08/07/17 17:01 08/07/17 17:01 - General physical appearance well developed, well nourished, no distress. negative: jaundice - Eyes normal ocular movement. negative: icteric - Respiratory normal respiratory effort, clear to auscultation - Cardiovascular Cardiovascular exam: Present: RRR. Absent: no murmurs/rubs/gallops - Abdomen Abdomen general surgery: Present: soft, non tender - Incision Incision: Present: clean and dry, intact - Integumentary Integumentary general surgery: Present: warm and dry, no abnormal pigmentation - Neurologic Present: CN 2-12 grossly intact, other (no focal deficits) - Psychiatric Psychiatric general surgery: Present: A&Ox3, appropriate, speech is normal Date of admission: 08/07/17 23:13 Primary care physician: PCP [facility] Consults: Gastroenterology, Dr. Reese Discharging clinician: Concetta Griffin Anticipated date of discharge: 08/10/17 - Patient Status Disposition: Home, Self-Care Condition: Good Functional capacity at discharge: independent ambulation Overall status at discharge: patient is progressing back to baseline - Discharge Instructions Follow Up With: NONE,PCP [Primary Care Provider] - Lou Montes De Oca MD [Partnered Physician] - [facility] [Provider Group] Additional Instructions: Follow up with general surgery (Dr. Montes De Oca) within 2 weeks Follow up with [facility] Follow up with PCP within 1 week Over the counter tylenol and ibuprofen for pain If you experience fever, chills, chest pain, shortness of breath, vomiting, or abdominal pain, return to emergency department - Diet and Activity Activity: resume usual activities as tolerated Diet: advance to your usual diet - Hospital Course Hospital course: Mr. Ennis is a 37 year old male with h/o gallstones presented to ED for RUQ pain that was similar to that of previous gallstones. Workup in ED included bedside US and elevations of total bilirubin, LFTs, WBCs. Patient was admitted for choledocholitiasis and acute pancreatitis. Lipase noted to be >1800 on admission. Formal gallbladder US showed cholelithiasis with CBD dilated to 1.3 cm; no evidence of acute cholecystitis. Gallstones causing CBD dilation seen on MRI abdomen. Gastroenterology was consulted, performed MRCP and ERCP, recommended cholecystectomy. Laparoscopic cholecystectomy with intraoperative cholangiogram performed 08/09/17 was well tolerated by patient who left OR in stable condition. Of note: right vocal cord nodule/mass seen by anesthesia during intubation--patient and his significant other are aware and outpatient follow up with ENT was recommended. Throughout course of his admission, patient continued to improve clinically. On day of discharge, patient felt well enough to be discharged home--vital signs were stable, was afebrile, tolerating regular diet PO; downward trends observed in white count, total bilirubin, and his lipase had returned to normal. - Time Spent with Patient Total time spent providing and/or coordinating discharge services: Labs on day of discharge: Labs from last 24 hours 08/10/17 08/10/17 08/10/17 04:03 04:03 04:03 WBC 12.1 H RBC 4.29 Hgb 12.6 L D Hct 36.6 L MCV 85.3 MCH 29.4 MCHC 34.4 RDW 12.7 Plt Count 184 MPV 9.8 Immature Gran % 0.5 Seg Neutrophils % 80.8 Lymphocytes % 10.5 Monocytes % 7.9 Eosinophils % 0.2 Basophils % 0.1 Neutrophils # 9.8 H Lymphocytes # 1.3 Monocytes # 1.0 Eosinophils # 0.0 Basophils # 0.0 Sodium 136 Potassium 4.2 Chloride 105 Carbon Dioxide 24 BUN 11 Creatinine 0.73 Est GFR ( Amer) > 60 Est GFR (Non-Af Amer) > 60 BUN/Creatinine Ratio 15 Glucose 105 POC Glucose Calculated Osmolality 282 Calcium 8.1 L Total Bilirubin 2.9 H Direct Bilirubin 0.8 H Indirect Bilirubin 2.1 H AST 65 H ALT 68 H Alkaline Phosphatase 92 Serum Total Protein 6.1 L Albumin 3.5 Globulin 2.6 Albumin/Globulin Ratio 1.3 Lipase 44 08/10/17 03:59 WBC RBC Hgb Hct MCV MCH MCHC RDW Plt Count MPV Immature Gran % Seg Neutrophils % Lymphocytes % Monocytes % Eosinophils % Basophils % Neutrophils # Lymphocytes # Monocytes # Eosinophils # Basophils # Sodium Potassium Chloride Carbon Dioxide BUN Creatinine Est GFR ( Amer) Est GFR (Non-Af Amer) BUN/Creatinine Ratio Glucose POC Glucose 105 H Calculated Osmolality Calcium Total Bilirubin Direct Bilirubin Indirect Bilirubin AST ALT Alkaline Phosphatase Serum Total Protein Albumin Globulin Albumin/Globulin Ratio Lipase - Impressions ITS Impressions Abdomen MRI 08/08/17 08:08 IMPRESSION: 1. Acute pancreatitis. 2. Common bile duct dilatation secondary to 2 distal gallstones measuring 2-3 mm. 3. Cholelithiasis without evidence of acute cholecystitis. D/ / Teresa Ambrocio MD / Teresa Ambrocio MD Interpreting Provider: Teresa Ambrocio MD Cath/Invasive Procedure 08/08/17 12:12 IMPRESSION: ERCP images demonstrating balloon sweeping of the common bile duct. D/ / Doc Velásquez MD / Doc Velásquez MD Interpreting Provider: Doc Velásquez MD Cholangiogram,Operative 08/09/17 00:00 IMPRESSION: Intraoperative images for cholangiogram as described above. Please see surgical report for complete details. D/ / Rohan Mast MD / Rohan Mast MD Interpreting Provider: Rohan Mast MD <Doc Hester - Last Filed: 08/10/17 18:39> Date of Encounter: 08/10/17 General Surgery Exam Initial Vital Signs Temp Pulse Resp BP Pulse Ox 97.5 F L 83 16 148/93 97 08/07/17 17:01 08/07/17 17:01 08/07/17 17:01 08/07/17 17:01 08/07/17 17:01 Date of admission: 08/07/17 23:13 Primary care physician: PCP NONE - Hospital Course Hospital course: Mr. Ennis is a 37 year old male - Time Spent with Patient Total time spent providing and/or coordinating discharge services: Labs on day of discharge: Labs from last 24 hours 08/10/17 08/10/17 08/10/17 04:03 04:03 04:03 WBC 12.1 H RBC 4.29 Hgb 12.6 L D Hct 36.6 L MCV 85.3 MCH 29.4 MCHC 34.4 RDW 12.7 Plt Count 184 MPV 9.8 Immature Gran % 0.5 Seg Neutrophils % 80.8 Lymphocytes % 10.5 Monocytes % 7.9 Eosinophils % 0.2 Basophils % 0.1 Neutrophils # 9.8 H Lymphocytes # 1.3 Monocytes # 1.0 Eosinophils # 0.0 Basophils # 0.0 Sodium 136 Potassium 4.2 Chloride 105 Carbon Dioxide 24 BUN 11 Creatinine 0.73 Est GFR ( Amer) > 60 Est GFR (Non-Af Amer) > 60 BUN/Creatinine Ratio 15 Glucose 105 POC Glucose Calculated Osmolality 282 Calcium 8.1 L Total Bilirubin 2.9 H Direct Bilirubin 0.8 H Indirect Bilirubin 2.1 H AST 65 H ALT 68 H Alkaline Phosphatase 92 Serum Total Protein 6.1 L Albumin 3.5 Globulin 2.6 Albumin/Globulin Ratio 1.3 Lipase 44 08/10/17 03:59 WBC RBC Hgb Hct MCV MCH MCHC RDW Plt Count MPV Immature Gran % Seg Neutrophils % Lymphocytes % Monocytes % Eosinophils % Basophils % Neutrophils # Lymphocytes # Monocytes # Eosinophils # Basophils # Sodium Potassium Chloride Carbon Dioxide BUN Creatinine Est GFR ( Amer) Est GFR (Non-Af Amer) BUN/Creatinine Ratio Glucose POC Glucose 105 H Calculated Osmolality Calcium Total Bilirubin Direct Bilirubin Indirect Bilirubin AST ALT Alkaline Phosphatase Serum Total Protein Albumin Globulin Albumin/Globulin Ratio Lipase - Impressions ITS Impressions Abdomen MRI 08/08/17 08:08 IMPRESSION: 1. Acute pancreatitis. 2. Common bile duct dilatation secondary to 2 distal gallstones measuring 2-3 mm. 3. Cholelithiasis without evidence of acute cholecystitis. D/ / Teresa Ambrocio MD / Teresa Ambrocio MD Interpreting Provider: Teresa Ambrocio MD Cath/Invasive Procedure 08/08/17 12:12 IMPRESSION: ERCP images demonstrating balloon sweeping of the common bile duct. D/ / Doc Velásquez MD / Doc Velásquez MD Interpreting Provider: Doc Velásquez MD Cholangiogram,Operative 08/09/17 00:00 IMPRESSION: Intraoperative images for cholangiogram as described above. Please see surgical report for complete details. D/ / Rohan Mast MD / Rohan Mast MD Interpreting Provider: Rohan Mast MD - Attending Attestation I have personally seen and examined the patient. I have reviewed pertinent labs , imaging, progress notes, including this one. I agree with the above assessment and plan and wish to include the following... s/p ERCP, lap nichole with decrease in WBC and T bili; afebrile; minimal pain; tolerating diet; okay for discharge today
--- NOTE | 2017-08-10 14:21 | Event Note ---
Date of Encounter: 08/10/17 Time of Encounter: 14:16 Please see discharge summary dictated by resident under supervision of Surgery attending. Patient POD #1 status post lap cholecystectomy. Patient had no complaints, ambulated well, denies pain, tolerated food, urinated without difficulty. Vital signs were unremarkable. LFTs improved post surgery. Physical exam was unremarkable. Patient will be discharged today He agrees to follow-up with primary care physician in regards to vocal cord nodule for an ENT referral.
[2017-08-10] MEDS ORDERED: FLUARIX QUAD 2017-18 36MOS UP/PF 0.5 ML SYRINGE IM ONE (15:03)
== END 2017-08-10 15:20 | disposition home or self-care (01) | DRG 417 ==
LOC: EMEROO 16:57 → 3ANU 16:57
PROVIDERS: ADMIT Internal Medicine Hematology & Oncology; ATTEND Internal Medicine